=== PATIENT | female | born 1965 | race African-American/Black ===

== ENCOUNTER 2017-03-16 16:51 | Emergency (ER) | payer MEDICAID ==
[~2017-03-16] VITALS: Ht 157.5 cm; Wt 55.0 kg
[2017-03-16 23:38] LABS: BASOPHILS % 0.5 % (0.0-2.0); EOSINOPHILS % 7.2 % (0.0-5.0); HEMATOCRIT. 34.7 % (36.0-48.0); HEMOGLOBIN. 11.5 g/dL (12.0-16.0); LYMPHOCYTES % 32.3 % (20.0-50.0); MEAN CORPUSCULAR HEMOGLOBIN 29.6 pg (28.0-32.0); MEAN CORPUSCULAR VOLUME 89.5 fL (81.0-99.0); MEAN PLATELET VOLUME 8.4 fl (7.4-10.4); PLATELET 289 x1000/uL (130-400); RED BLOOD CELL COUNT 3.88 mill/uL (4.2-5.4); RED CELL DISTRIBUTION WIDTH 14.1 % (11.6-14.6)
[2017-03-16 23:45] LABS: PROTHROMBIN TIME 10.7 sec (9.4-11.6)
[2017-03-16 23:53] LABS: CARBON DIOXIDE 29 mEq/L (21-32); CHLORIDE 104 mEq/L (98-107)
[2017-03-17 00:50] LABS: CLARITY URINE CLOUDY (CLEAR); COLOR URINE YELLOW (YELLOW); KETONES URINE NEGATIVE (NEGATIVE); LEUKOCYTE ESTERASE URINE NEGATIVE (NEGATIVE); NITRITE URINE NEGATIVE (NEGATIVE); OCCULT BLOOD URINE NEGATIVE (NEGATIVE); PH URINE 5.5 (4.5-8.0); PROTEIN URINE NEGATIVE (NEGATIVE); SPECIFIC GRAVITY URINE 1.025 (1.005-1.030)
[2017-03-17 01:05] VITALS: BP 128/74
== END 2017-03-17 01:14 | disposition home or self-care (01) ==
LOC: ER 18:09
DX: B86 Scabies (principal); F17.200 Nicotine dependence, unspecified, uncomplicated; Z59.0 Homelessness
CPT/HCPCS: 36415; 80053; 81001; 81025; 85025; 85610; 99284

== ENCOUNTER 2018-03-08 02:53 | Emergency (ER) | payer MEDICAID ==
[~2018-03-08] VITALS: Ht 165.1 cm; Wt 68.0 kg
[2018-03-08] MEDS ORDERED: PREDNISONE 20MG TABLET PO ONE (04:15)
[2018-03-08 06:26] VITALS: BP 99/53
== END 2018-03-08 06:32 | disposition home or self-care (01) ==
LOC: ER 03:21
DX: J44.9 Chronic obstructive pulmonary disease, unspecified (principal); F17.200 Nicotine dependence, unspecified, uncomplicated; Z71.6 Tobacco abuse counseling
CPT/HCPCS: 99283; J7512